=== PATIENT | female | born 1995 | race African-American/Black ===

== ENCOUNTER 2021-10-28 08:46 | Emergency (ER) | payer OTHER, SELFPAY ==
--- NOTE | ~2021-10-28 | CT_ITS ---
EXAMINATION: CT facial bones wo con DATE: 10/28/2021 10:11 INDICATION: Contusion and bruising/swelling of the right cheek TECHNIQUE: Computed tomography (CT) of the facial bones was performed without intravenous contrast. T he dose-length product was 613.06 mGy-cm. Automated exposure control and iterative reconstruction juana hnique were employed. COMPARISON: None FINDINGS: The mandible is intact. Temporal mandibular joints are symmetric. There is a nondisplaced r ight nasal fracture. Mild right facial soft tissue swelling. Orbits are symmetric without evidence fo r blowout fracture. Lamina papyracea is intact bilaterally. Temporomandibular joint ostiomeatal units are patent. Paranasal sinuses are pneumatized. IMPRESSION: 1. Nondisplaced right nasal fracture with adjacent right facial and periorbital soft tissue swelling. Reviewed, dictated and finalized at location A. [facility]
[2021-10-28 09:44] VITALS: BP 156/85; PULSE 87; RESP 16; TEMP 36.6; O2SAT 100
--- NOTE | 2021-10-28 10:20 | ED.WOUNDLAC ---
HPI - Wound/Laceration General Chief Complaint: Wound/Laceration <MIKE Hawley Last Filed: 10/28/21 11:27> Stated Complaint: face laceration <MIKE Hawley Last Filed: 10/28/21 11:27> Time Seen by Provider: 10/28/21 10:09 <MIKE Hawley Last Filed: 10/28/21 11:27> Source: patient <MIKE Hawley Last Filed: 10/28/21 11:27> Mode of arrival: ambulatory <MIKE Hawley Last Filed: 10/28/21 11:27> Limitations: no limitations <MIKE Hawley Last Filed: 10/28/21 11:27> History of Present Illness HPI narrative: This is a 26 year old female that presents to the ER for a laceration below the right eye sustained just prior to arrival. Reports she was trying to close her trailer hitch and the handle swung and hit her in the face. Denies loss of consciousness. Reports a small laceration below the right eye and bruising to the area. She is not up to date on tetanus. Denies vision changes, vomiting, numbness, or weakness. <MIKE Hawley Last Filed: 10/28/21 11:27> Related Data Allergies/Adverse Reactions: Allergies Allergy/AdvReac Type Severity Reaction Status Date / Time No Known Allergies Allergy Verified 10/28/21 09:42 <MIKE Hawely Last Filed: 10/28/21 11:27> Review of Systems Review of Systems: CONSTITUTIONAL: Denies fever EYES: Denies visual changes, redness, or discharge. GASTROINTESTINAL: Denies vomiting NEUROLOGIC: Denies headache, numbness, or weakness. <MIKE Hawley Last Filed: 10/28/21 11:27> All systems reviewed & are unremarkable except as noted in HPI and below <MIKE Hawley Last Filed: 10/28/21 11:27> [facility] Past Medical History Medical History: Medical History (Updated 02/05/22 @ 11:24 by Liz Najera PA-C) No active medical problems <Liz Najera PA-C - Last Filed: 10/28/21 11:27> Social History Social History: Social History (Updated 10/28/21 @ 10:28 by Liz Najera PA-C) Smoking status: Never smoker <Liz Najera PA-C - Last Filed: 10/28/21 11:27> Exam Narrative: GENERAL: Well-appearing, well-nourished, and in no acute distress. HEAD: Normocephalic, atraumatic. EYES: PERRLA and EOMI. ENT: Nares clear, no rhinorrhea or epistaxis. Mucous membranes moist. Oropharynx without tonsillar hypertrophy exudate or other lesions. Bilateral TMs pearly reece non-bulging NECK: Supple. No adenopathy or masses. CHEST: Clear to auscultation. No respiratory distress. No wheezes rales or rhonchi HEART: Regular rate and rhythm. No murmur heard. Normal peripheral pulses. EXTREMITIES: Normal range of motion. No edema. Strength equal in bilateral upper extremities (5/5) SKIN: Warm, dry, no rash. NEURO: No focal deficits. Alert and oriented x3. 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 I agree with the documentation as above <Ronnie Raymond MD - Last Filed: 10/28/21 13:34> Vital Signs Vital signs: Vital Signs Temperature 36.6 C 10/28/21 09:44 Pulse Rate 87 10/28/21 09:44 Respiratory Rate 16 10/28/21 09:44 Blood Pressure 156/85 H 10/28/21 09:44 Pulse Oximetry 100 10/28/21 09:44 Temperature 36.6 C 10/28/21 09:44 Pulse Rate 87 10/28/21 09:44 Respiratory Rate 16 10/28/21 09:44 Blood Pressure 156/85 H 10/28/21 09:44 Pulse Oximetry 100 10/28/21 09:44 <Liz Najera PA-C - Last Filed: 10/28/21 11:27> Vital Signs Temperature 36.6 C 10/28/21 09:44 Pulse Rate 87 10/28/21 09:44 Respiratory Rate 16 10/28/21 09:44 Blood Pressure 156/85 H 10/28/21 09:44 Pulse Oximetry 100 10/28/21 09:44 Temperature 36.6 C 10/28/21 09:44 Pulse Rate 87 10/28/21 09:44 Respiratory Rate 16 0205
[2021-10-28] MEDS: TETANUS,DIPHTHERIA,AC PERTUSSIS ADULT (0.5 ML) BOOSTRIX IM (10:53)
== END 2021-10-28 12:01 | disposition home or self-care (01) ==
PROVIDERS: Emergency Provider Emergency Medicine
DX: S01.81XA Laceration without foreign body of other part of head, initial encounter (principal); S02.2XXA Fracture of nasal bones, initial encounter for closed fracture; Z23 Encounter for immunization; W22.8XXA Striking against or struck by other objects, initial encounter
CPT/HCPCS: 70486; 90471; 90715; 99284